=== PATIENT | female | born 1965 | race Caucasian/White ===

== ENCOUNTER 2017-02-15 03:14 | Emergency (ER) | payer SELFPAY ==
[2017-02-15 03:25] VITALS: BP 125/82
== END 2017-02-15 05:12 | disposition left against medical advice (07) ==
LOC: ED 03:14
DX: R11.2 Nausea with vomiting, unspecified (principal); Z53.21 Procedure and treatment not carried out due to patient leaving prior to being seen by health care provider

== ENCOUNTER 2017-09-03 13:05 | Day surgery (SDC) | payer MEDICAID ==
[~2017-09-03 13:05] MED LIST: ANCEF/STERILE WATER 2 GM/20 ML IV NR
--- NOTE | 2017-09-03 14:09 | Anesthesia Consultation ---
Anesthesia Consult and Med Hx Date of service: 09/03/17 - Airway Anesthetic Teeth Evaluation: Good ROM Head & Neck: Adequate Mental/Hyoid Distance: Adequate Mallampati Class: Class II Intubation Access Assessment: Probably Good - Pulmonary Exam CTA: Yes - Cardiac Exam Cardiac Exam: RRR - Pre-Operative Health Status ASA Pre-Surgery Classification: ASA2 Proposed Anesthetic Plan: General - Pulmonary Hx Smoking: No Hx Sleep Apnea: No (ISABELLE PRE SCREEN LOW RISK. 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
--- NOTE | 2017-09-03 14:09 | Anesthesia Day of Surgery ---
Anesthesia Day of Surgery - Day of Surgery Patient Examined: Yes Patient H&P Reviewed: Yes Patient is NPO: Yes
[2017-09-03 14:20] LABS: BUN/Creatinine Ratio 14; Blood Urea Nitrogen 15 mg/dL (7-17); Hemolysis Index 7
[2017-09-03] MEDS ORDERED: ZOFRAN IV PRN (14:30)
[2017-09-03] MEDS ORDERED: VERSED IV PRN (15:00)
[2017-09-03] MEDS ORDERED: DILAUDID IV PRN (15:00)
[2017-09-03] MEDS ORDERED: NACL 0.9% 1000 ML 1,000 ML IV SCH (15:00)
[2017-09-03] MEDS ORDERED: PEPCID IV NR (15:00)
[2017-09-03] MEDS ORDERED: SUBLIMAZE ONE (15:01)
[2017-09-03] MEDS ORDERED: DIPRIVAN 10 MG/ML IV ONE (15:01)
[2017-09-03] MEDS ORDERED: WATER FOR IRRIG STERILE IR ONE ×2 (15:34)
[2017-09-03] MEDS ORDERED: OMNIPAQUE (300 MG) IR ONE (15:34)
[2017-09-03] MEDS ORDERED: XYLOCAINE MPF 2% ONE (15:41)
[2017-09-03] MEDS ORDERED: ZOFRAN ONE (15:41)
--- NOTE | 2017-09-03 15:42 | Short Stay Summary ---
Short Stay Documentation Date of service: 09/03/17 - History H&P: obtained from office - Allergies and Medications Current Medications: Allergies No Known Allergies Allergy (Unverified 02/15/17 03:22) Home Medications Medication Instructions Recorded Confirmed Last Taken Type Cholecalciferol (Vitamin D3) 2,000 unit PO DAILY 08/25/17 09/03/17 09/02/17 09: 00 History [Vitamin D3] Ferrous Sulfate 324 mg PO DAILY 08/25/17 09/03/17 09/02/17 09:00 History Hydrochlorothiazide [HCTZ] 25 mg PO QDAY 08/25/17 09/03/17 09/02/17 09:00 History Simvastatin [Zocor TAB] 20 mg PO QHS 08/25/17 09/03/17 09/02/17 21:00 History Active Medications Cefazolin Sodium (Ancef/Sterile Water 2 Gm/20 Ml) 2 gm IV PREOP NR Stop: 09/03/17 23:02 Famotidine (Pepcid) 20 mg IV PREOP NR Stop: 09/03/17 17:00 Hydromorphone HCl (Dilaudid) 0.5 mg IV Q10MIN PRN PRN Reason: Pain , Severe (7-10) Stop: 09/03/17 19:00 Sodium Chloride (Nacl 0.9% 1000 Ml) 1,000 mls @ 75 mls/hr IV DIRECT BLANCA Last Admin: 09/03/17 14:30 Dose: 75 mls/hr Midazolam HCl (Versed) 2 mg IV PREOP PRN PRN Reason: Anxiety Stop: 09/03/17 16:30 Ondansetron HCl (Zofran) 4 mg IV ONCE PRN PRN Reason: Nausea And Vomiting - Brief post op/procedure progress note Date of procedure: 09/03/17 Pre-op diagnosis: hematuria Post-op diagnosis: same Procedure: cysto, urethral dilation, hydrodistention Anesthesia: GETA Surgeon: ABIODUN ROPER Estimated blood loss: none Condition: stable - Hospital course Hospital course: cipro,sheila,fareed on chart - Disposition Condition at discharge: Stable Disposition: DC-01 TO HOME OR SELFCARE Short Stay Discharge Plan Follow up with: LAMONT ARANDA MD [Primary Care Provider] - 7 Days
[2017-09-03 18:27] VITALS: BP 118/81
--- NOTE | 2017-09-04 08:09 | Fluoroscopy Report ---
FLUOROSCOPY RETROGRADE UROGRAPHY: HISTORY: Nephrolithiasis. FINDINGS: Fluoroscopy was provided by radiology during retrograde urography by the urologist. 11 fluoroscopic images were captured. There is adequate filling of the ureters and intrarenal collecting systems with no filling defects or anatomic abnormalities identified. Please correlate with the procedural report if needed. IMPRESSION: Retrograde pyelograms within normal limits.
--- NOTE | 2017-09-12 17:32 | Operative Report ---
PREOPERATIVE DIAGNOSIS: Hematuria. POSTOPERATIVE DIAGNOSIS: Hematuria. PROCEDURES: Cystoscopy, urethral dilatation, hydrodistention. SURGEON: Josiah Hutchison M.D. ANESTHESIA: General. ESTIMATED BLOOD LOSS: Minimal. FLUIDS: Crystalloid. COMPLICATIONS: No complications. INDICATIONS: This patient is a 51-year-old female seen in the office with hematuria. Risks, benefits, and complications were explained. The patient agreed to proceed with surgical intervention. CT of the abdomen and pelvis was unremarkable. DESCRIPTION OF PROCEDURE: The patient was taken to the operative suite and placed in a supine position. After adequate general anesthesia, she was placed in the dorsal lithotomy position and prepped and draped in a sterile fashion. Pancystourethroscopy was performed with a 22-Kenyan Storz cystoscope with some mild trigonitis and mild urethral stenosis, which was dilated to 28-Kenyan. Bilateral retrograde pyelograms were obtained with an 8 Ken[place] Román catheter and 8 mL of contrast. No filling defects or obstruction. Hydrodistention was performed. Bladder capacity of 500 mL. No petechiae or hemorrhage could be appreciated. The patient tolerated the procedure well. She was extubated and taken to the recovery room. She will go home. She was discharged on Cipro, Ultram, and [place]. JOB# [id number] [facility]
== END 2017-09-03 17:32 | disposition home or self-care (01) ==
LOC: OR 13:05
PROVIDERS: ATTEND Urology
DX: N30.31 Trigonitis with hematuria (principal); I12.0 Hypertensive chronic kidney disease with stage 5 chronic kidney disease or end stage renal disease; N18.9 Chronic kidney disease, unspecified; Z79.899 Other long term (current) drug therapy
CPT/HCPCS: 36415; 52281; 74420; 80048; 81025; 82962; A4217; C1758; J0690; J2405; J2704; J3010; J7030; Q9967